=== PATIENT | female | born 1955 | race Two or more races ===

== ENCOUNTER 2020-02-28 08:31 | Outpatient (REF) | payer OTHER, MEDICAID, SELFPAY | END 2020-02-28 08:32 | disposition home or self-care (01) | LOC: HO.LAB 08:31 | PROVIDERS: Visit Provider Hospitalist | DX: Z20.828 Contact with and (suspected) exposure to other viral communicable diseases (principal) | CPT/HCPCS: U0003 ==

== ENCOUNTER 2020-08-05 16:06 | Outpatient (REF) | payer OTHER, MEDICAID, SELFPAY ==
[2020-08-05 17:10] LABS: Basophils Percent Auto 0.5 % (0-2); Eosinophils Percent Auto 0.6 % (0-4); Hematocrit 35.2 % (37-47); Hemoglobin 10.7 g/dl (12.0-16.0); Imm Gran Abs Auto 0.01 X10*3/uL (0.00-0.03); Imm Gran Pct Auto 0.2 % (0.0-0.4); Lymphocytes Absolute Auto 1.6 X10*3/uL (1.2-4.9); Lymphocytes Percent Auto 26.1 % (20-40); MANUAL DIFF FLAG SCAN; Mean Corpuscular HGB Conc 30.4 g/dl (31.0-35.0); Mean Corpuscular Hemoglobin 20.3 pg (27.0-33.0); Mean Corpuscular Volume 66.9 fL (80-98); Mean Platelet Volume 12.2 fL (9.4-12.3); Monocytes Absolute Auto 0.4 X10*3/uL (0.1-1.2); Monocytes Percent Auto 6.4 % (2-11); Neutrophils Absolute Auto 4.2 X10*3/uL (2.0-8.3); Neutrophils Percent Auto 66.2 % (45-73); Platelet Count 225 X10*3/uL (160-400); Red Blood Count 5.26 X10*6/uL (4.20-5.50); Red Cell Distribution Width 14.6 % (11.0-16.0); SCAN SMEAR FLAG 1; White Blood Count 6.3 X10*3/uL (4.8-10.8)
[2020-08-05 17:11] LABS: PLT ABN DIST 1
[2020-08-05 17:39] LABS: SLIDE REVIEW VERIFIED
[2020-08-05 17:48] LABS: Alanine Aminotransferase 17 U/L (0-31); Albumin Level 4.2 g/dL (3.5-5.0); Alkaline Phosphatase 76 U/L (39-117); Anion Gap 15 (12-20); Aspartate Amino Transferase 19 U/L (5-31); Bilirubin Total 0.8 mg/dL (0.0-1.0); Blood Urea Nitrogen 13 mg/dL (9-16); Calcium 9.3 mg/dL (8.4-10.2); Carbon Dioxide 27 mmol/L (22-29); Chloride 103 mmol/L (96-108); Estimated Glomerular Filt Rate > 60; Glucose Fasting 85 mg/dL (60-99); Sodium 141 mmol/L (135-145); Total Protein 7.4 g/dL (6.5-8.0)
[2020-08-05 17:59] LABS: Glucose Urine UA NEG (NEG); Leukocyte Esterase Urine NEG (NEG); Nitrite Urine NEG (NEG); Specific Gravity - Urine 1.025 (1.005-1.025); Urine Blood NEG (NEG); Urine Ketones NEG (NEG); Urine Protein NEG (NEG-TRACE)
[2020-08-05 18:01] LABS: Appearance Urine CLEAR; Color Urine YELLOW
[2020-08-05 18:12] LABS: Erythrocyte Sedimentation Rate 10 MM/HR (0-20)
[2020-08-05 18:47] LABS: Free T4 (Free Thyroxine) 0.94 ng/dL (0.71-1.85)
[2020-08-06 14:12] LABS: CRP High Sensitivity 3.9 mg/L
== END 2020-08-05 16:07 | disposition home or self-care (01) ==
LOC: HO.LAB 16:06
PROVIDERS: PCP Hospitalist; Visit Provider Family Medicine
DX: Z00.00 Encounter for general adult medical examination without abnormal findings (principal); R51.9 Headache, unspecified; R53.83 Other fatigue
CPT/HCPCS: 36415; 80053; 81003; 84439; 84443; 85025; 85652; 86141